=== PATIENT | female | born 1990 | race Two or more races ===

== ENCOUNTER 2017-05-17 04:53 | Emergency (ER) | payer BC ==
[2017-05-17 05:00] VITALS: BP 135/101; PULSE 81; RESP 20; TEMP 98.1; O2SAT 94
[2017-05-17] MEDS ORDERED: PROPARACAINE 0.5% 15 ML OPHT DROP ONE (05:02)
[2017-05-17] MEDS ORDERED: FLUORESCEIN SODIUM 1 MG STRIP OP ONE ×2 (05:02→05:16)
--- NOTE | 2017-05-17 05:06 | EDPHY ---
H & P Stated Complaint: left eye "something in eye" HPI/ROS: HPI CHIEF COMPLAINT: Painful left eye HISTORY OF PRESENT ILLNESS: The patient 27-year-old female, otherwise healthy does not take any daily medications, she presents emergency room left eye pain. She states around 8:00 p.m. last night she developed some discomfort in left eye she decided to take her contact out and the pain got worse. The pain persisted all night. Worse when she blinks. Denies loss of vision or trouble with her vision. She does wear contact lenses. There monthly contact lenses. She just changed to a new set. She denies a history of eye problems. Past Medical History: No significant medical history Past Surgical History: No significant surgical history Social History: denies daily use drugs alcohol tobacco products. Family History: Noncontributory ROS REVIEW OF SYSTEMS: A comprehensive 10 point review of systems is otherwise negative aside from elements mentioned in the history of present illness. Exam Constitutional triage nursing summary reviewed, vital signs reviewed, awake/ alert. Eyes right eye normal, left eye conjunctiva is slightly injected, extra movements intact, anterior chamber normal, posterior eye exam normal. Globe is soft. Visual acuity reviewed. At the center of the cornea there is a corneal abrasion present this is seen on fluorescein uptake with Wood's lamp. Lids everted no foreign body seen. Proparacaine was applied to the left eye with great pain relief. Slit-lamp exam no visualized foreign body seen. normal conjunctivae and sclera, EOMI, PERRLA. HENT normal inspection, atraumatic, moist mucus membranes, no epistaxis, neck supple/ no meningismus, no raccoon eyes. Respiratory clear to auscultation bilaterally, normal breath sounds, no respiratory distress, no wheezing. Cardiovascular rate normal, regular rhythm, no murmur, no edema, distal pulses normal. Gastrointestinal soft, non-tender, no rebound, no guarding, normal bowel sounds, no distension, no pulsatile mass. Genitourinary no CVA tenderness. Musculoskeletal no midline vertebral tenderness, full range of motion, no calf swelling, no tenderness of extremities, no meningismus, good pulses, neurovascularly intact. Skin pink, warm, & dry, no rash, skin atraumatic. Neurologic awake, alert and oriented x 3, AAOx3, moves all 4 extremities equally, motor intact, sensory intact, CN II-XII intact, normal cerebellar, normal vision, normal speech. Psychiatric normal mood/affect. Heme/Lymph/Immune no lymphadenopathy. Differential Diagnosis: Includes but is not limited to in a particular order corneal abrasion, conjunctivitis, iritis, uveitis, foreign body, corneal tear, glaucoma Medical Decision Making: this patient is obvious corneal abrasion seen on fluorescein exam with Wood's lamp. Feels much better after proparacaine. Globe soft. Will start on antibiotic ointment. Cool compresses ibuprofen for pain control. Close ophthalmology follow-up. I went over this with her. She understands she needs to see Ophthalmology next 24 hours. Call their for an appointment. Do not rub her eye. Do not wear contacts. She understands. Source: Patient - Personal History LMP (Females 10-55): 1-7 Days Ago Current Tetanus/Diphtheria Vaccine: Yes Current Tetanus Diphtheria and Acellular Pertussis (TDAP): Yes Tetanus Vaccine Date: <10 years - Medical/Surgical History Hx Asthma: Yes Hx Chronic Respiratory Disease: No Hx Diabetes: No Hx Cardiac Disease: No Hx Renal Disease: No Hx Cirrhosis: No Hx Alcoholism: No Hx HIV/AIDS: No Hx Splenectomy or Spleen Trauma: No Other PMH: asthma - Social History Smoking Status: Former smoker Constitutional: Initial Vital Signs Temperature (C) 36.7 C 05/17/17 04:56 Heart Rate 81 05/17/17 04:56 Respiratory Rate 20 05/17/17 04:56 Blood Pressure 135/101 H 05/17/17 04:56 O2 Sat (%) 94 05/17/17 04:56 Allergies/Adverse Reactions: bee venom protein (honey bee) Allergy (Verified 05/17/17 05:00) raspberry Allergy (Verified 05/17/17 05:00) Home Medications: Medication Instructions Recorded Erythromycin 0.5% 3.5 gm OP BID #1 opht.oint 05/17/17 Departure - Departure Disposition: Home, Routine, Self-Care Clinical Impression: Corneal abrasion, left Qualifiers: Encounter type: initial encounter Qualified Code(s): S05.02XA - Injury of conjunctiva and corneal abrasion without foreign body, left eye, initial encounter Condition: Good Instructions: Corneal Abrasion (ED) Additional Instructions: 1. Do not rub your eye. 2. do not wear contacts. 3.Follow up with Ophthalmology in the next 24 hours call their for an appointment 4.Use cool compresses to her eye take ibuprofen for pain control. Take her antibiotics as prescribed. Referrals: Laura Doyle MD [Primary Care Provider] - As per Instructions Betito Nugent MD [Medical Doctor] - As per Instructions Prescriptions: Erythromycin 0.5% 3.5 gm OP BID #1 opht.oint
[2017-05-17] MEDS ORDERED: PROPARACAINE 0.5% 15 ML OPHT DROP LEFTEYE ONE (05:15)
[2017-05-17] MEDS ORDERED: ERYTHROMYCIN 0.5% 1 GM OPHT.OINT LEFTEYE ONE (05:22)
== END 2017-05-17 05:47 | disposition home or self-care (01) ==
DX: S05.02XA Injury of conjunctiva and corneal abrasion without foreign body, left eye, initial encounter (principal); J45.909 Unspecified asthma, uncomplicated; Z87.891 Personal history of nicotine dependence; X58.XXXA Exposure to other specified factors, initial encounter